=== PATIENT | female | born 1950 | race Caucasian/White ===

== ENCOUNTER 2018-04-01 14:59 | Emergency (ER) | payer MEDICARE ==
[2018-04-01] MEDS: ONDANSETRON 4MG/2ML VIAL (J2405) IV (16:16)
[2018-04-01] MEDS: MORPHINE 4 MG/ML 1ML VIAL/SYRINGE (J2270) IV (16:17)
== END 2018-04-01 18:48 | disposition short-term general hospital (02) ==
LOC: M ED 14:59
DX: S72.402A Unspecified fracture of lower end of left femur, initial encounter for closed fracture (principal); W19.XXXA Unspecified fall, initial encounter
CPT/HCPCS: J2270

== ENCOUNTER → 2023-09-23 | Outpatient (REF) | payer MEDICARE, OTHER ==
[~2023-09-23] MED LIST: AMIT100TA; AMIT150T PO; CITA20TA6; FLUO20CA22; GABA-282; HYDR-3719; HYDR7.5T38 PO; IBUP600T26 PO; LISIPOW XX; METH1TAB40 PO; NORCOTAB PO; OMEP1CAP73; OMEP40CA2 PO; VITA1CAP25; VITACAP8
[2023-09-23 12:44] LABS: APPEARANCE, URINE MANUAL HAZY (CLEAR)
[2023-09-23 12:45] LABS: COLOR, URINE MANUAL LT YELLOW (YELLOW); GLUCOSE, URINE (UA) MANUAL NEGATIVE (NEGATIVE); KETONE, URINE MANUAL NEGATIVE (NEGATIVE); PROTEIN, URINE MANUAL TRACE mg/dL (NEGATIVE); SPECIFIC GRAVITY,URINE MANUAL 1.005 (1.002-1.035)
[2023-09-23 12:46] LABS: BILIRUBIN, URINE MANUAL NEGATIVE (NEGATIVE); BLOOD URINE MANUAL POSITIVE (NEGATIVE); LEUKOCYTE ESTERASE, URINE MAN POSITIVE (NEGATIVE); NITRITE, URINE MANUAL NEGATIVE (NEGATIVE); UROBILINOGEN, URINE MANUAL NORMAL (NORMAL)
[2023-09-23 13:02] LABS: SQUAMOUS EPITHELIAL CELL URINE MOD AMOUNT /hpf (SMALL AMT)
[2023-09-23 13:03] LABS: BACTERIA, URINE SMALL AMOUNT; HYALINE CAST, URINE NONE SEEN /lpf (0-1); MUCUS, URINE SMALL AMOUNT (NEGATIVE)
== END ==
LOC: M SFHCLERA 11:36
PROVIDERS: ATTEND Physician Assistant
DX: R06.02 Shortness of breath (principal); R22.43 Localized swelling, mass and lump, lower limb, bilateral; Z79.899 Other long term (current) drug therapy

== ENCOUNTER 2024-07-04 17:25 | Inpatient (IN) | payer MEDICARE ==
[~2024-07-04] VITALS: Ht 160 cm; Wt 107.7 kg
[~2024-07-04 17:25] MED LIST changes: +ACETAMINOPHEN *IV* 1,000 MG in IV 1 EA IV SCH; +FLUO-365 PO; -FLUO20CA22; +GABA-1172 PO; -GABA-282; -HYDR-3719; +HYDR-3719 PO
[2024-07-04] MEDS: ONDANSETRON 4MG 2ML VIAL IV ONE (18:00)
[2024-07-04] MEDS: MORPHINE 2 MG/ML 1ML VIAL IV PRN (18:38)
[2024-07-04 18:57] LABS: BASO % 0.4 % (0.0-1.0); EOS % 0.2 % (0.0-3.0); HEMATOCRIT 40.6 % (36.0-47.0); HEMOGLOBIN 12.6 g/dl (12.0-15.5); LYMPH # 0.9 10^3/uL (1.5-5.0); LYMPH % 9.4 % (24.0-44.0); MEAN CORPUSCULAR HEMOGLOBIN 29.2 pg (27.0-33.0); MEAN CORPUSCULAR VOLUME 94.2 fl (80.0-96.0); MONO # 0.5 10^3/uL (0.0-0.8); MONO % 4.9 % (2.0-8.0); NEUTROPHILS # 8.5 10^3/uL (1.5-8.5); NEUTROPHILS % 84.7 % (36.0-66.0); PLATELET COUNT, AUTOMATED 352 10^3/uL (150-450); RED BLOOD COUNT 4.31 10^6/uL (4.00-5.40)
[2024-07-04 19:07] LABS: INR 0.9; PROTHROMBIN TIME 12.5 SECONDS (12.5-14.5)
[2024-07-04 19:11] LABS: ALBUMIN 2.9 G/DL (3.2-5.2); ALKALINE PHOSPHATASE 135 U/L (35-104); ALT/SGPT 16 U/L (7.0-40); AST/SGOT 27 U/L (<34); BILIRUBIN,TOTAL 0.2 MG/DL (0.3-1.2); BLOOD UREA NITROGEN 9 MG/DL (9-23); CALCIUM LEVEL 8.6 MG/DL (8.3-10.6); CARBON DIOXIDE LEVEL 30 MMOL/L (20-31); CHLORIDE LEVEL 106 MMOL/L (98-107); CREATININE FOR GFR 0.83 MG/DL (0.55-1.30); GLOMERULAR FILTRATION RATE > 60.0 (>39); GLUCOSE, FASTING 117 MG/DL (74-106); POTASSIUM SERUM 4.6 MMOL/L (3.5-5.1); SODIUM LEVEL 144 MMOL/L (136-145); TOTAL PROTEIN 6.7 G/DL (5.7-8.2)
[2024-07-04] MEDS: ACETAMINOPHEN *IV* 1,000 MG in IV 1 EA IV ONE (22:01)
[2024-07-04] MEDS: fentaNYL 100 MCG/2 ML INJECTION IV ONE (22:01)
[2024-07-04 22:02] LABS: PARTIAL THROMBOPLASTIN TIME 27.7 SECONDS (24.8-34.2)
[2024-07-04] MEDS ORDERED: ROPI0.5T33 PO (22:16)
[2024-07-04] MEDS ORDERED: FURO40TA2 PO (22:16)
[2024-07-04] MEDS ORDERED: ACET-897 PO (22:17)
[2024-07-04] MEDS ORDERED: OMEP40CA4 PO (22:18)
[2024-07-04] MEDS ORDERED: HOME MED LIST COMPLETE! XX SCH ×2 (22:20→22:40)
[2024-07-04] MEDS ORDERED: FLUO40CA PO (22:33)
[2024-07-04] MEDS ORDERED: AMIT150T PO (22:35)
[2024-07-04 23:03] LABS: MAGNESIUM LEVEL 2.1 MG/DL (1.8-2.4)
[2024-07-04] MEDS ORDERED: MAALOX 30 ML SUSP *UDC PO PRN (23:50)
[2024-07-04] MEDS ORDERED: MOM 30ML SUSPENSION UDC PO PRN (23:50)
[2024-07-05] VITALS (14 sets, daily range): BP systolic 114–148; BP diastolic 53–78; TEMP 96.7–97.7; O2SAT 86–95
[2024-07-05] MEDS: FUROSEMIDE 20MG/2ML VIAL IV ONE (03:34)
[2024-07-05] MEDS: METHOCARBAMOL 1,000 MG/10 ML VIAL IV ONE (03:34)
[2024-07-05] MEDS: ACETAMINOPHEN *IV* 1,000 MG in IV 1 EA IV SCH (05:01)
[2024-07-05] MEDS: MORPHINE 4 MG/ML 1ML VIAL IV PRN (05:01)
[2024-07-05 06:51] LABS: HEMOGLOBIN 12.5 g/dl (12.0-15.5); MEAN CORPUSCULAR HEMOGLOBIN 29.4 pg (27.0-33.0); MEAN CORPUSCULAR HGB CONC 32.1 g/dl (32.0-36.5); MEAN CORPUSCULAR VOLUME 91.8 fl (80.0-96.0); PLATELET COUNT, AUTOMATED 370 10^3/uL (150-450); RED BLOOD COUNT 4.25 10^6/uL (4.00-5.40); WHITE BLOOD COUNT 8.4 10^3/uL (4.0-10.0)
[2024-07-05 07:25] LABS: ALBUMIN 2.9 G/DL (3.2-5.2); ALKALINE PHOSPHATASE 135 U/L (35-104); ALT/SGPT 18 U/L (7.0-40); AST/SGOT 26 U/L (<34); BILIRUBIN,TOTAL 0.4 MG/DL (0.3-1.2); BLOOD UREA NITROGEN 9 MG/DL (9-23); CALCIUM LEVEL 8.7 MG/DL (8.3-10.6); CARBON DIOXIDE LEVEL 32 MMOL/L (20-31); CHLORIDE LEVEL 100 MMOL/L (98-107); GLOMERULAR FILTRATION RATE > 60.0 (>39); GLUCOSE, FASTING 112 MG/DL (74-106); POTASSIUM SERUM 4.4 MMOL/L (3.5-5.1); SODIUM LEVEL 139 MMOL/L (136-145)
[2024-07-05] MEDS: OMEPRAZOLE 20MG CAP PO SCH (08:23)
[2024-07-05] MEDS: DOCUSATE SODIUM 100MG CAPSULE PO SCH (08:23)
[2024-07-05] MEDS: GABAPENTIN 300 MG CAP PO SCH (08:23)
[2024-07-05] MEDS ORDERED: LIDOCAINE 2% 100MG/5ML SDV (FOR ANES.) As Ordered ONE (15:03)
[2024-07-05] MEDS ORDERED: propofoL 200 MG/20 ML VIAL As Ordered ONE (15:03)
[2024-07-05] MEDS ORDERED: ROCURONIUM BROMIDE 50MG/5ML VIAL As Ordered ONE (15:03)
[2024-07-05] MEDS: ceFAZolin 1GM VIAL As Ordered ONE (15:12)
[2024-07-05] MEDS: ceFAZolin 2 GM/D5W 50 ML IV BAG As Ordered ONE (16:05)
[2024-07-05] MEDS ORDERED: ACETAMINOPHEN 1000MG/100ML IV BAG As Ordered ONE (16:30)
[2024-07-05] MEDS ORDERED: ONDANSETRON 4MG 2ML VIAL As Ordered ONE (16:30)
[2024-07-05] MEDS ORDERED: fentaNYL 100 MCG/2 ML INJECTION As Ordered ONE (16:30)
[2024-07-05] MEDS ORDERED: PHENYLephrine 500MCG 5ML (100MCG/ML) SYRINGE As Ordered ONE (16:30)
[2024-07-05] MEDS ORDERED: SUGAMMADEX SODIUM 500 MG/5 ML VIAL (BRIDION) As Ordered ONE (16:30)
[2024-07-05] MEDS ORDERED: HYDROmorphone HCL 2MG/ML 1ML VIAL As Ordered ONE (16:30)
[2024-07-05] MEDS ORDERED: ePHEDrine SULFATE 25 MG/5 ML(5MG/ML) SYRINGE As Ordered ONE (16:30)
[2024-07-05] MEDS: BUPivacaine LIPOSOME/PF 266MG 20ML VIAL (13.3MG/ML)(EXPAREL) As Ordered ONE (17:00)
[2024-07-05] MEDS ORDERED: HYDROMORPHONE HCL 0.5 MG/ 0.5 ML SYRINGE IV PRN (17:15)
[2024-07-05] MEDS ORDERED: ONDANSETRON 4MG 2ML VIAL IV PRN (17:15)
[2024-07-05] MEDS ORDERED: fentaNYL 100 MCG/2 ML INJECTION IV PRN (17:15)
[2024-07-05] MEDS ORDERED: oxyCODONE 5MG TAB PO PRN (17:15)
[2024-07-05] MEDS: LABETALOL 100MG/20ML VIAL IV PRN (17:30)
[2024-07-05] MEDS ORDERED: LABETALOL 100MG/20ML VIAL As Ordered ONE (17:33)
[2024-07-05] MEDS: rOPINIRole 0.25 MG TAB(REQUIP) PO SCH (21:15)
[2024-07-05] MEDS: FLUoxetine 20MG CAP PO SCH ×2 (21:15)
[2024-07-05] MEDS: MORPHINE 2 MG/ML 1ML VIAL IV PRN (21:17)
[2024-07-05] MEDS: AMITRIPTYLINE 50 MG TAB PO SCH (21:21)
[2024-07-05] MEDS: ceFAZolin SOD 2 GM in IV 1 EA IV SCH (23:45)
[2024-07-06] VITALS (10 sets, daily range): BP systolic 117–146; BP diastolic 62–83; TEMP 97.5–97.9; O2SAT 79–96
[2024-07-06 08:34] LABS: HEMATOCRIT 36.7 % (36.0-47.0); HEMOGLOBIN 11.5 g/dl (12.0-15.5); MEAN CORPUSCULAR HEMOGLOBIN 29.3 pg (27.0-33.0); MEAN CORPUSCULAR HGB CONC 31.3 g/dl (32.0-36.5); MEAN CORPUSCULAR VOLUME 93.4 fl (80.0-96.0); PLATELET COUNT, AUTOMATED 294 10^3/uL (150-450); RED BLOOD COUNT 3.93 10^6/uL (4.00-5.40)
[2024-07-06 08:46] LABS: BLOOD UREA NITROGEN 11 MG/DL (9-23); CALCIUM LEVEL 8.6 MG/DL (8.3-10.6); CARBON DIOXIDE LEVEL 33 MMOL/L (20-31); CHLORIDE LEVEL 101 MMOL/L (98-107); CREATININE FOR GFR 0.71 MG/DL (0.55-1.30); GLOMERULAR FILTRATION RATE > 60.0 (>39); GLUCOSE, FASTING 104 MG/DL (74-106); POTASSIUM SERUM 5.1 MMOL/L (3.5-5.1); SODIUM LEVEL 140 MMOL/L (136-145)
[2024-07-07 00:17] VITALS: BP 134/88; TEMP 97.9; O2SAT 89
[2024-07-07 05:19] LABS: HEMATOCRIT 31.8 % (36.0-47.0); HEMOGLOBIN 9.8 g/dl (12.0-15.5); MEAN CORPUSCULAR HEMOGLOBIN 28.8 pg (27.0-33.0); MEAN CORPUSCULAR HGB CONC 30.8 g/dl (32.0-36.5); MEAN CORPUSCULAR VOLUME 93.5 fl (80.0-96.0); PLATELET COUNT, AUTOMATED 269 10^3/uL (150-450); WHITE BLOOD COUNT 6.7 10^3/uL (4.0-10.0)
[2024-07-07 05:32] VITALS: BP 140/72; TEMP 97.5; O2SAT 97
[2024-07-07 05:45] LABS: BLOOD UREA NITROGEN 12 MG/DL (9-23); CALCIUM LEVEL 7.9 MG/DL (8.3-10.6); CARBON DIOXIDE LEVEL 33 MMOL/L (20-31); CHLORIDE LEVEL 105 MMOL/L (98-107); CREATININE FOR GFR 0.76 MG/DL (0.55-1.30); GLOMERULAR FILTRATION RATE > 60.0 (>39); GLUCOSE, FASTING 87 MG/DL (74-106); POTASSIUM SERUM 4.3 MMOL/L (3.5-5.1); SODIUM LEVEL 142 MMOL/L (136-145)
[2024-07-07] MEDS ORDERED: oxyCODONE 5MG TAB PO PRN (07:55)
[2024-07-07] MEDS: CYCLOBENZAPRINE 5MG TABLET PO SCH (08:50)
[2024-07-07 10:30] VITALS: BP 158/84; TEMP 97.7; O2SAT 94
[2024-07-07 12:00] VITALS: BP 123/51; TEMP 97.7; O2SAT 94
[2024-07-07 12:23] LABS: HEMATOCRIT 33.8 % (36.0-47.0); HEMOGLOBIN 10.6 g/dl (12.0-15.5)
[2024-07-07 12:35] VITALS: O2SAT 93
[2024-07-07 12:38] VITALS: O2SAT 92
[2024-07-07] MEDS: ENOXAPARIN 40MG/0.4ML SYRINGE (J1650 PER 10MG) SC SCH (13:42)
[2024-07-08] VITALS (7 sets, daily range): BP systolic 138; BP diastolic 65; TEMP 97.7; O2SAT 83–97
[2024-07-08] MEDS: oxyCODONE 5MG TAB PO PRN (05:35)
[2024-07-08] MEDS: ACETAMINOPHEN 325 MG TAB PO PRN (08:56)
[2024-07-08] MEDS ORDERED: ENOXAPARIN 40MG/0.4ML SYRINGE (J1650 PER 10MG) SC SCH (09:00)
[2024-07-09] VITALS (8 sets, daily range): BP systolic 148–153; BP diastolic 88–97; TEMP 97.5–97.7; O2SAT 83–95
[2024-07-09] MEDS: NYSTATIN 100,000 UNITS/GM TOPICAL PWD 15GM TOP SCH (00:28)
[2024-07-09 04:46] LABS: HEMOGLOBIN 10.9 g/dl (12.0-15.5); MEAN CORPUSCULAR HEMOGLOBIN 29.5 pg (27.0-33.0); MEAN CORPUSCULAR HGB CONC 31.1 g/dl (32.0-36.5); MEAN CORPUSCULAR VOLUME 94.6 fl (80.0-96.0); PLATELET COUNT, AUTOMATED 321 10^3/uL (150-450); WHITE BLOOD COUNT 6.4 10^3/uL (4.0-10.0)
[2024-07-09 05:24] LABS: ALBUMIN 2.3 G/DL (3.2-5.2); ALKALINE PHOSPHATASE 103 U/L (35-104); ALT/SGPT 12 U/L (7.0-40); AST/SGOT 27 U/L (<34); BILIRUBIN,TOTAL 0.5 MG/DL (0.3-1.2); BLOOD UREA NITROGEN 11 MG/DL (9-23); CALCIUM LEVEL 8.6 MG/DL (8.3-10.6); CARBON DIOXIDE LEVEL 32 MMOL/L (20-31); CHLORIDE LEVEL 107 MMOL/L (98-107); CREATININE FOR GFR 0.64 MG/DL (0.55-1.30); GLOMERULAR FILTRATION RATE > 60.0 (>39); GLUCOSE, FASTING 81 MG/DL (74-106); POTASSIUM SERUM 4.3 MMOL/L (3.5-5.1); SODIUM LEVEL 142 MMOL/L (136-145); TOTAL PROTEIN 6.2 G/DL (5.7-8.2)
[2024-07-09 06:00] LABS: KETONE, URINE AUTO RFX NEGATIVE (NEGATIVE); MUCUS, URINE RFX SMALL (NEGATIVE); NITRITE, URINE AUTO RFX NEGATIVE (NEGATIVE); RBC, URINE AUTO RFX 29 /HPF (0-3); SQUAM EPITHELIAL CELL UR AURFX 5 /HPF (0-6)
[2024-07-09 06:02] LABS: LEUKOCYTE ESTERASE UR AUTO RFX 3+ (NEGATIVE); WBC, URINE AUTO RFX TNTC /HPF (0-3)
[2024-07-09] MEDS: LevoFLOXacin 750 MG TABLET PO SCH (09:02)
[2024-07-10] VITALS (8 sets, daily range): BP systolic 144; BP diastolic 65; TEMP 97.9; O2SAT 86–94
[2024-07-11 04:33] VITALS: BP 150/65; TEMP 97.5; O2SAT 92
[2024-07-11 05:38] VITALS: O2SAT 94
[2024-07-11] MEDS ORDERED: ASPI81CH48 PO (06:57)
[2024-07-11] MEDS ORDERED: LEVO75TAB PO (06:57)
[2024-07-11 07:11] VITALS: O2SAT 90
== END 2024-07-11 09:31 | DRG 493 ==
LOC: M ED 17:25 → EDBD 17:25 → M ED INP 23:46 → M MSPAV 07-05 02:15
PROVIDERS: ADMIT Family Medicine; ATTEND Student in an Organized Health Care Education/Training Program
PROC: 0QSH34Z Reposition Left Tibia with Internal Fixation Device, Percutaneous Approach (ICD-10-PCS; principal; 2024-07-05 10:00)
DX: S82.222A Displaced transverse fracture of shaft of left tibia, initial encounter for closed fracture (principal); I50.30 Unspecified diastolic (congestive) heart failure; N39.0 Urinary tract infection, site not specified; D62 Acute posthemorrhagic anemia; F03.90 Unspecified dementia, unspecified severity, without behavioral disturbance, psychotic disturbance, mood disturbance, and anxiety; I11.0 Hypertensive heart disease with heart failure; G47.33 Obstructive sleep apnea (adult) (pediatric); R29.6 Repeated falls; F41.9 Anxiety disorder, unspecified; F32.A Depression, unspecified; G25.81 Restless legs syndrome; M54.30 Sciatica, unspecified side; Z96.642 Presence of left artificial hip joint; Z79.899 Other long term (current) drug therapy; Z91.199 Patient's noncompliance with other medical treatment and regimen due to unspecified reason; W18.30XA Fall on same level, unspecified, initial encounter; Y92.009 Unspecified place in unspecified non-institutional (private) residence as the place of occurrence of the external cause

== ENCOUNTER → 2024-07-22 | Outpatient (CLI) | payer MEDICARE ==
[~2024-07-22] MED LIST changes: +ACET-897 PO; -ACETAMINOPHEN *IV* 1,000 MG in IV 1 EA IV SCH; +ASPI81CH48 PO; +FLUO40CA PO; +FURO40TA2 PO; +LEVO75TAB PO; +OMEP40CA4 PO; +ROPI0.5T33 PO
== END ==
LOC: M SOG 07:56
PROVIDERS: ATTEND Physician Assistant
DX: Z53.9 Procedure and treatment not carried out, unspecified reason (principal)

== ENCOUNTER → 2024-07-28 | Outpatient (CLI) | payer MEDICARE | LOC: M SOG 07:57 | PROVIDERS: ATTEND Physician Assistant | DX: S82.202A Unspecified fracture of shaft of left tibia, initial encounter for closed fracture (principal); Z53.9 Procedure and treatment not carried out, unspecified reason ==

== ENCOUNTER → 2024-08-09 | Outpatient (CLI) | payer MEDICARE | LOC: M SOG 07:57 | PROVIDERS: ATTEND Physician Assistant | DX: S82.202A Unspecified fracture of shaft of left tibia, initial encounter for closed fracture (principal) ==

== ENCOUNTER 2024-08-25 11:33 | Emergency (ER) | payer MEDICARE ==
[~2024-08-25] VITALS: Ht 160 cm; Wt 110.5 kg
[2024-08-25 15:57] LABS: BASO # 0.1 10^3/uL (0.0-0.2); BASO % 0.4 % (0.0-1.0); EOS # 0.1 10^3/uL (0.0-0.5); EOS % 0.7 % (0.0-3.0); HEMOGLOBIN 12.3 g/dl (12.0-15.5); LYMPH # 1.4 10^3/uL (1.5-5.0); MEAN CORPUSCULAR HEMOGLOBIN 28.8 pg (27.0-33.0); MEAN CORPUSCULAR HGB CONC 30.8 g/dl (32.0-36.5); MEAN CORPUSCULAR VOLUME 93.7 fl (80.0-96.0); MONO # 0.7 10^3/uL (0.0-0.8); MONO % 5.7 % (2.0-8.0); NEUTROPHILS # 10.5 10^3/uL (1.5-8.5); NEUTROPHILS % 81.8 % (36.0-66.0); PLATELET COUNT, AUTOMATED 326 10^3/uL (150-450); RED BLOOD COUNT 4.27 10^6/uL (4.00-5.40); WHITE BLOOD COUNT 12.8 10^3/uL (4.0-10.0)
[2024-08-25 16:05] LABS: ERYTHROCYTE SEDIMENTATION RATE 64 mm/hr (0-30)
[2024-08-25 16:25] LABS: ALBUMIN 3.2 G/DL (3.2-5.2); ALKALINE PHOSPHATASE 200 U/L (35-104); ALT/SGPT 19 U/L (7.0-40); AST/SGOT 25 U/L (<34); BILIRUBIN,TOTAL 0.4 MG/DL (0.3-1.2); BLOOD UREA NITROGEN 10 MG/DL (9-23); C REACTIVE PROTEIN QUANTITATIV 1.93 MG/DL (<1.0); CALCIUM LEVEL 8.6 MG/DL (8.3-10.6); CARBON DIOXIDE LEVEL 28 MMOL/L (20-31); CHLORIDE LEVEL 105 MMOL/L (98-107); CK-MB VALUE MASS < 1.0 NG/ML (<3.6); CPK CREATINE PHOSPHOKINASE 38 U/L (34-145); CREATININE FOR GFR 0.57 MG/DL (0.55-1.30); GLOMERULAR FILTRATION RATE > 60.0 (>39); GLUCOSE, FASTING 98 MG/DL (74-106); MB/CK RELATIVE INDEX 2.63 (< OR =4); POTASSIUM SERUM 3.6 MMOL/L (3.5-5.1); SODIUM LEVEL 143 MMOL/L (136-145); TOTAL PROTEIN 7.3 G/DL (5.7-8.2)
[2024-08-25] MEDS: ONDANSETRON 4MG 2ML VIAL IV ONE (16:57)
[2024-08-25] MEDS: MORPHINE 4 MG/ML 1ML VIAL IV ONE (16:57)
[2024-08-25 17:49] LABS: KETONE, URINE AUTO RFX TRACE mg/dL (NEGATIVE); MUCUS, URINE RFX SMALL (NEGATIVE); RBC, URINE AUTO RFX 7 /HPF (0-3); SQUAM EPITHELIAL CELL UR AURFX 1 /HPF (0-6)
[2024-08-25 17:51] LABS: LEUKOCYTE ESTERASE UR AUTO RFX 3+ (NEGATIVE); NITRITE, URINE AUTO RFX POSITIVE (NEGATIVE); WBC, URINE AUTO RFX 66 /HPF (0-3)
[2024-08-25 17:57] VITALS: BP 189/78; TEMP 96.9; O2SAT 96
[2024-08-25] MEDS ORDERED: SULF1TAB23 PO (18:08)
== END 2024-08-25 18:21 | disposition home or self-care (01) ==
LOC: M ED 11:33 → EDBD 11:33 → M ED 18:21
DX: S93.402A Sprain of unspecified ligament of left ankle, initial encounter (principal); N39.0 Urinary tract infection, site not specified; I45.81 Long QT syndrome; W10.8XXA Fall (on) (from) other stairs and steps, initial encounter; Y92.009 Unspecified place in unspecified non-institutional (private) residence as the place of occurrence of the external cause; Y93.89 Activity, other specified; Y99.9 Unspecified external cause status; Z79.52 Long term (current) use of systemic steroids; Z79.82 Long term (current) use of aspirin; Z79.899 Other long term (current) drug therapy
CPT/HCPCS: 70450; 71046; 73552; 73564; 73590; 73610; 80053; 81001; 82550; 82553; 84484; 85025; 85652; 86140; 87088; 87186; 93005; 93971; 96374; 99284; J2405

== ENCOUNTER → 2024-09-06 | Outpatient (CLI) | payer MEDICARE ==
[~2024-09-06] MED LIST changes: +SULF1TAB23 PO
== END ==
LOC: M SOG 07:52
PROVIDERS: ATTEND Physician Assistant
DX: S82.202D Unspecified fracture of shaft of left tibia, subsequent encounter for closed fracture with routine healing (principal)

== ENCOUNTER → 2024-10-08 | Outpatient (CLI) | payer MEDICARE | LOC: M SOG 08:22 | PROVIDERS: ATTEND Physician Assistant | DX: S82.202A Unspecified fracture of shaft of left tibia, initial encounter for closed fracture (principal); X58.XXXA Exposure to other specified factors, initial encounter; Y92.9 Unspecified place or not applicable ==

== ENCOUNTER → 2024-10-20 | Outpatient (REF) | payer MEDICARE | LOC: M SFHCLERA 15:56 | PROVIDERS: ATTEND Internal Medicine | DX: Z53.21 Procedure and treatment not carried out due to patient leaving prior to being seen by health care provider (principal) ==

== ENCOUNTER → 2025-01-31 | Outpatient (REF) | payer MEDICARE ==
[~2025-01-31] MED LIST changes: +AMIT150T4 PO
[2025-01-31 18:51] LABS: BASO # 0.0 10^3/uL (0.0-0.2); BASO % 0.6 % (0.0-1.0); EOS # 0.2 10^3/uL (0.0-0.5); EOS % 2.5 % (0.0-3.0); LYMPH # 1.5 10^3/uL (1.5-5.0); LYMPH % 20.3 % (24.0-44.0); MONO # 0.5 10^3/uL (0.0-0.8); MONO % 6.9 % (2.0-8.0); NEUTROPHILS # 5.0 10^3/uL (1.5-8.5); NEUTROPHILS % 69.6 % (36.0-66.0); PLATELET COUNT, AUTOMATED 359 10^3/uL (150-450)
[2025-01-31 18:58] LABS: ALT/SGPT 24.0 U/L (7.0-40); AST/SGOT 30.0 U/L (<34); CALCIUM LEVEL 9.0 MG/DL (8.3-10.6); CARBON DIOXIDE LEVEL 28.0 MMOL/L (20-31); CHLORIDE LEVEL 109.0 MMOL/L (98-107); CREATININE FOR GFR 0.81 MG/DL (0.55-1.30); GLOMERULAR FILTRATION RATE 76.1 (>39); POTASSIUM SERUM 4.6 MMOL/L (3.5-5.1); SODIUM LEVEL 146.0 MMOL/L (136-145)
== END ==
LOC: M SFHCLERA 08:46
PROVIDERS: ATTEND Family Medicine
DX: I50.32 Chronic diastolic (congestive) heart failure (principal); J44.9 Chronic obstructive pulmonary disease, unspecified
CPT/HCPCS: 80053; 85025; G0463

== ENCOUNTER → 2025-02-21 | Outpatient (CLI) | payer MEDICARE | LOC: M SOG 08:06 | PROVIDERS: ATTEND Physician Assistant | DX: S82.202A Unspecified fracture of shaft of left tibia, initial encounter for closed fracture (principal) ==